=== PATIENT | male | born 1960 | race Caucasian/White ===

== ENCOUNTER 2024-06-04 23:34 | Inpatient (IN) | payer OTHER, SELFPAY ==
[2024-06-05 00:21] VITALS: BP 159/81; PULSE 50; RESP 18; TEMP 36.9; O2SAT 98
[2024-06-05 01:08] VITALS: BMI 27.8
[2024-06-05] MEDS: Melatonin 3 MG TABLET 9 MG PO (01:18)
[2024-06-05] MEDS: Mirtazapine 7.5 MG TABLET PO (01:19)
[2024-06-05] MEDS: oxyCODONE HCl Immed Release 5 MG TABLET PO ×2 (01:19→05:19)
[2024-06-05] MEDS: Cyclobenzaprine HCl 5 MG TABLET PO (01:19)
[2024-06-05] MEDS: traZODone HCL 50 MG TABLET PO (01:20)
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
[2024-06-05] MEDS: hydrOXYzine HCL 50 MG TABLET PO (05:19)
[2024-06-05] MEDS: Pantoprazole Sodium 20 MG TABLET.DR 40 MG PO (05:20)
[2024-06-05 08:00] VITALS: BP 161/89; PULSE 64; RESP 18; TEMP 36.9; O2SAT 97
[2024-06-05] MEDS: Gabapentin 100 MG CAPSULE PO (08:02)
[2024-06-05] MEDS: Atorvastatin Calcium 10 MG TABLET PO (08:02)
[2024-06-05 09:17] LABS: Alanine Aminotransferase 23 U/L (0-40); Albumin Level 3.7 g/dL (3.5-5.0); Alkaline Phosphatase 77 U/L (39-117); Anion Gap 12 (12-20); Aspartate Amino Transferase 15 U/L (5-37); Bilirubin Total 0.3 mg/dL (0.0-1.0); Blood Urea Nitrogen 18 mg/dL (9-16); Calcium 8.5 mg/dL (8.4-10.2); Carbon Dioxide 30 mmol/L (22-29); Chloride 103 mmol/L (96-108); Creatinine Clr Calc Pharmacy 88.2; Estimated Glomerular Filt Rate > 60; Glucose Random 92 mg/dL (60-115); Potassium 3.9 mmol/L (3.3-5.1); Sodium 141 mmol/L (135-145); Total Protein 6.4 g/dL (6.5-8.0)
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
--- NOTE | 2024-06-05 09:49 | HO.PM.IMCN ---
History of Present Illness Data of Consult Service Date: 06/05/24 Primary Care Provider: Unknown Physician HPI Reason for consult: Admission H&P Pt is a 63-year-old male with a PMH significant for?multiple sclerosis, COPD not on home oxygen, HLD, chronic right shoulder and lower extremity pain, and GERD who is admitted to [facility] psych increasing depression vague SI. Hospitalist consult for admission H&P. Pt reports overall that he feels well, around baseline. Chronic right lower leg weakness around baseline. Chronic right shoulder and lower extremity pain baseline. Pt does not feel like he is in an acute MS flare. Pt denies any acute medical complaints at this time. No fever, chills, nausea, vomiting, abdominal pain. Denies chest pain/pressure, palpitations. No shortness a breath or difficulty breathing. Chronic dry cough at baseline. Denies headache or acute vision changes. Pt currently smokes 1 pack daily. Review of Systems Review of Systems: Negative except for that which is stated in the HPI. [facility] Medical History (Updated 06/05/24 @ 10:40 by LASHONDA Givens) GERD (gastroesophageal reflux disease) Chronic right shoulder pain Chronic lower limb pain HLD (hyperlipidemia) COPD (chronic obstructive pulmonary disease) Multiple sclerosis Social History Household Members: Children Household Members Other:: son Housing: Apartment Do you presently have visiting nurse or other home services: No Patient Tobacco Use Status: Former Tobacco user Tobacco use type: Cigarette Smoked in Last 30 Days: No Patient Interested in Nicotine Replacement: No Patient Given Instructions on How to Stop Smoking: No Second Hand Smoke Exposure: No Use of substances other than those prescribed or required for medical reasons: No Have you been hit, kicked, punched, or otherwise hurt by someone within the past year? If so, by whom?: No Do you feel safe in your current relationship?: No Is there a partner from a previous relationship who is making you feel unsafe now?: No Are you made to feel afraid or neglected: No Advance Directives: No Advance Directives Information Provided: Yes Do you have a plan to hurt others: No Plan Recently lost weight without trying: Yes How much weight loss: 2-13 pounds Eating poorly because of decreased appetite: No Nutrition screen score: 3 Nutrition Risks: No Nutritional Risk Poor oral hygiene: No Meds Allergies Allergy/AdvReac Type Severity Reaction Status Date / Time No Known Allergies Allergy Verified 06/04/24 23:46 Active Medications: Current Medications Acetaminophen (Acetaminophen 325 Mg Tablet) 650 mg PO Q6H PRN PRN Reason: Headache/Pain Mild Scale (1-3) Al Hydroxide/Mg Hydroxide (Magnesium Hydrox/Alum Hydrox 30 Ml Oral.Susp) 30 ml PO Q6H PRN PRN Reason: Heartburn/Nausea Atorvastatin Calcium (Atorvastatin Calcium 10 Mg Tablet) 10 mg PO DAILY [facility] Last Admin: 06/05/24 08:02 Dose: 10 mg Cyclobenzaprine HCl (Cyclobenzaprine Hcl 5 Mg Tablet) 5 mg PO TID PRN PRN Reason: muscle spasm Last Admin: 06/05/24 01:19 Dose: 5 mg Gabapentin (Gabapentin 100 Mg Capsule) 100 mg PO TID [facility] Last Admin: 06/05/24 08:02 Dose: 100 mg Guaifenesin/Dextromethorphan (Guaifenesin Dm 100/10/5 Ml 5 Ml Syrup) 5 ml PO Q4H PRN PRN Reason: Cough Hydroxyzine HCl (Hydroxyzine Hcl 50 Mg Tablet) 50 mg PO TID PRN PRN Reason: Anxiety Last Admin: 06/05/24 05:19 Dose: 50 mg Ibuprofen (Ibuprofen 800 Mg Tablet) 800 mg PO TID PRN PRN Reason: Pain (Scale Score 4-6) Magnesium Hydroxide (Milk Of Magnesia 30 Ml Oral.Susp) 30 ml PO DAILY PRN PRN Reason: Constipation Melatonin (Melatonin 3 Mg Tablet) 9 mg PO BEDTIME PRN PRN Reason: Insomnia Last Admin: 06/05/24 01:18 Dose: 9 mg Mirtazapine (Mirtazapine 7.5 Mg Tablet) 7.5 mg PO BEDTIME [facility] Last Admin: 06/05/24 01:19 Dose: 7.5 mg Nicotine Polacrilex (Nicotine Polacrilex 2 Mg Gum) 4 mg BUCCAL Q2H PRN PRN Reason: Nicotine Cravings Oxycodone HCl (Oxycodone Hcl Immed Release 5 Mg Tablet) 5 mg PO Q4H PRN PRN Reason: Pain (Scale Score 7-10) Last Admin: 06/05/24 05:19 Dose: 5 mg Pantoprazole Sodium (Pantoprazole Sodium 20 Mg Tablet.Dr) 40 mg PO DAILY@0630 [facility] Last Admin: 06/05/24 05:20 Dose: 40 mg Polyethylene Glycol (Polyethylene Glycol 3350 17 Gm Powd.Pack) 17 gm PO BID [facility] Last Admin: 06/05/24 08:10 Dose: Not Given Tiotropium [place] (Tiotropium [place] 2.5 Mcg 1 Puff/2.5 Mcg Mist.Inhal) 2 puff INHALE DAILY [facility] Last Admin: 06/05/24 08:10 Dose: Not Given Trazodone HCl (Trazodone Hcl 50 Mg Tablet) 50 mg PO BEDTIME MRX1 PRN PRN Reason: Insomnia Last Admin: 06/05/24 01:20 Dose: 50 mg Home Medications ?Medication ?Instructions ?Recorded ?Confirmed ?Last Taken ?Type atorvastatin 10 mg tablet 10 mg PO DAILY 06/04/24 06/04/24 Unknown History ibuprofen 800 mg tablet 800 mg PO TID PRN Pain (Scale 06/04/24 06/04/24 Unknown History Score 4-6) tiotropium bromide 2.5 2 puff inhalation DAILY 06/04/24 06/04/24 Unknown History mcg/actuation mist for inhalation (Spiriva Respimat) trazodone 50 mg tablet 50 mg PO BEDTIME 06/04/24 06/04/24 Unknown History cyclobenzaprine 10 mg tablet 5 mg PO TID PRN muscle spasm 06/05/24 06/05/24 Unknown History dextromethorphan-guaifenesin 20 5 ml PO Q4H PRN Cough 06/05/24 06/05/24 Unknown History mg-200 mg/15 mL oral liquid gabapentin 100 mg capsule 100 mg PO TID 06/05/24 06/05/24 Unknown History hydroxyzine HCl 50 mg tablet 50 mg PO TID PRN Anxiety 06/05/24 06/05/24 Unknown History melatonin 3 mg tablet 9 mg PO BEDTIME PRN Insomnia 06/05/24 06/05/24 Unknown History mirtazapine 7.5 mg tablet 7.5 mg PO BEDTIME 06/05/24 06/05/24 Unknown History oxycodone 5 mg tablet 5 mg PO Q4H PRN Pain (Scale Score 06/05/24 06/05/24 Unknown History 7-10) pantoprazole 20 mg tablet,delayed 40 mg PO DAILY 06/05/24 06/05/24 Unknown History release polyethylene glycol 3350 17 gram 17 g PO BID 06/05/24 06/05/24 Unknown History oral powder packet Physical Exam Vital Signs and Narrative: Vital Signs: Last Vital Signs Temp 98.4 F 06/05/24 00:21 Pulse 50 06/05/24 00:21 Resp 18 06/05/24 00:21 BP 159/81 H 06/05/24 00:21 Pulse Ox 98 06/05/24 00:21 O2 Del Method Room Air 06/05/24 00:21 BMI result Body Mass Index 27.8 General: AOx3, no acute distress Resp: CTA bilaterally CVS: S1, S2, RRR GI: +BS, NT, no distention Skin: Warm, dry Neuro: Cranial nerves II-XII grossly intact bilaterally. Motor grossly intact bilaterally. Right lower extremity 2/5 strength. Left lower extremity 5/5 strength. Sensation to light touch intact of face, upper extremities bilaterally, and lower extremities bilaterally Extremities: No edema Psych: Appropriate affect Results Labs 06/05/24 08:43 Labs: Laboratory Results - last 24 hr 06/05/24 08:43 Anion Gap 12 Estim Creat Clear Calc 88.2 Estimated GFR > 60 Random Glucose 92 Calcium 8.5 Total Bilirubin 0.3 AST 15 ALT 23 Alkaline Phosphatase 77 Total Protein 6.4 L Albumin 3.7 Assessment and Plan (1) Medical clearance for psychiatric admission: Status: Acute Plan Pt is a 63-year-old male with a PMH significant for?multiple sclerosis, COPD not on home oxygen, HLD, chronic right shoulder and lower extremity pain, and GERD who is admitted to [facility] psych increasing depression vague SI. Hospitalist consult for admission H&P. Mood disorder Plan as per Psychiatry Multiple sclerosis Not in acute exacerbation Continue cyclobenzaprine Chronic right shoulder and lower extremity pain Continue gabapentin, ibuprofen, home opioids COPD Not in acute exacerbation Continue home inhalers HLD Continue statin Thank you for allowing us to participate in the care of this patient. Signing off at this time. Please re-consult if any acute complaints or issues arise.
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
[2024-06-05] MEDS: Naloxone HCl Nasal TAKE HOME 4 MG SPRAY 8 MG NOSTRILALT (11:34)
== END 2024-06-05 11:53 | disposition home or self-care (01) | DRG 885 ==
PROVIDERS: Admitting Provider Registered Nurse; Visit Provider Registered Nurse
DX: F39 Unspecified mood [affective] disorder (principal); R45.851 Suicidal ideations; J44.9 Chronic obstructive pulmonary disease, unspecified; E78.5 Hyperlipidemia, unspecified; G35 Multiple sclerosis; Z87.891 Personal history of nicotine dependence; Z79.899 Other long term (current) drug therapy
CPT/HCPCS: 36415; 80053

== ENCOUNTER → 2024-06-04 23:34 | Outpatient (BNV) | payer MEDICAID, SELFPAY | PROVIDERS: Admitting Provider Registered Nurse; Visit Provider Student in an Organized Health Care Education/Training Program | DX: Z00.8 Encounter for other general examination (principal) | CPT/HCPCS: 99429 ==

== ENCOUNTER → 2024-06-04 23:34 | Outpatient (BNV) | payer OTHER, SELFPAY | PROVIDERS: Admitting Provider Registered Nurse; Visit Provider Social Worker | DX: F39 Unspecified mood [affective] disorder (principal) | CPT/HCPCS: 99239; 99499 ==